=== PATIENT | male | born 1955 | race Caucasian/White ===

== ENCOUNTER 2020-12-27 11:49 | Outpatient (RCR) | payer MEDICARE, SELFPAY ==
[2020-12-27] MEDS: COVID-19 VACC, MRNA(PFIZER)/PF 30 MCG/0.3 ML SYRINGE IM (07:10)
[2021-01-17] MEDS: COVID-19 VACC, MRNA(PFIZER)/PF 30 MCG/0.3 ML SYRINGE IM (07:16)
== END 2021-03-28 23:59 ==
LOC: IMMUN 11:49
PROVIDERS: PCP Family Medicine; Visit Provider Family Medicine
DX: Z23 Encounter for immunization (principal)
CPT/HCPCS: 0001A; 0002A; 91300

== ENCOUNTER → 2021-10-06 07:19 | Outpatient (CLI) | payer MEDICARE, SELFPAY ==
--- NOTE | 2021-10-06 07:21 | US_ITS ---
STUDY: ABDOMINAL ULTRASOUND - RIGHT UPPER QUADRANT REASON FOR VISIT: Male, 66 years old FATTY LIVER TECHNIQUE: Ultrasound evaluation of the right upper quadrant was performed with real-time and static perkins-scale imaging. TECHNICAL QUALITY: Adequate. COMPARISON: None. FINDINGS: Liver: The liver is enlarged and measures 19.5 cm. There is increased echogenicity consistent with fatty infiltration. The bile ducts are within normal limits. There is hepatic color flow. The direction of portal flow is hepatopetal. Multiple cysts are seen in the liver. The largest cyst measures 4.4 cm x 6.8 cm x 5.2 cm. Gallbladder: Normal distended gallbladder. The gallbladder wall measures 2.8 mm. There is a negative sonographic Ellison''s sign. There is no pericholecystic fluid. There are no gallstones. Common Bile Duct (C.B.D.): The common bile duct measures 3.0 mm. Pancreas: Normal size of the head, body and tail of the pancreas. There is increased echogenicity of the pancreas. There is no demonstrated pancreatic mass or cyst. Right Kidney: Normal size of the right kidney. The right kidney measures 11.2 cm x 6.5 cm x 7.6 cm. Normal renal cortex. The right cortex measures 2.2 cm. There is no demonstrated renal mass or cyst. There is no right hydronephrosis. IMPRESSION: Hepatomegaly and diffuse fatty infiltration of the liver. Hepatic cysts. Electronically Signed: Sonny Boyd MD at 9:51 EST , Service support , STUDY: ABDOMINAL ULTRASOUND - ELASTOGRAPHY REASON FOR VISIT: Male, 66 years old. Hepatomegaly and fatty obstruction of the liver. TECHNIQUE: Liver stiffness measurements were obtained on a [employer] 85 ultrasound machine using a CA 1-7 probe following the SRU guidelines. 3 measurements were obtained using a 2-D-SWE method. The IQR/M was 15% suggesting a quality data set. TECHNICAL QUALITY: Adequate. COMPARISON: Comparison is made with prior examination done earlier today. FINDINGS: Liver: Hepatomegaly and diffuse fatty infiltration of the liver. Median liver stiffness measured 17 kPa. US/Elastography Parenchyma/Organ IMPRESSION: Liver stiffness measures 17 kPa compatible with F4 Metavir score. Electronically Signed: Sonny Boyd MD at 9:53 EST , Service support ,
--- NOTE | 2021-10-06 07:21 | US_ITS ---
STUDY: ABDOMINAL ULTRASOUND - RIGHT UPPER QUADRANT REASON FOR VISIT: Male, 66 years old FATTY LIVER TECHNIQUE: Ultrasound evaluation of the right upper quadrant was performed with real-time and static perkins-scale imaging. TECHNICAL QUALITY: Adequate. COMPARISON: None. FINDINGS: Liver: The liver is enlarged and measures 19.5 cm. There is increased echogenicity consistent with fatty infiltration. The bile ducts are within normal limits. There is hepatic color flow. The direction of portal flow is hepatopetal. Multiple cysts are seen in the liver. The largest cyst measures 4.4 cm x 6.8 cm x 5.2 cm. Gallbladder: Normal distended gallbladder. The gallbladder wall measures 2.8 mm. There is a negative sonographic Ellison''s sign. There is no pericholecystic fluid. There are no gallstones. Common Bile Duct (C.B.D.): The common bile duct measures 3.0 mm. Pancreas: Normal size of the head, body and tail of the pancreas. There is increased echogenicity of the pancreas. There is no demonstrated pancreatic mass or cyst. Right Kidney: Normal size of the right kidney. The right kidney measures 11.2 cm x 6.5 cm x 7.6 cm. Normal renal cortex. The right cortex measures 2.2 cm. There is no demonstrated renal mass or cyst. There is no right hydronephrosis. IMPRESSION: Hepatomegaly and diffuse fatty infiltration of the liver. Hepatic cysts. Electronically Signed: Sonny Boyd MD at 9:51 EST , Service support , STUDY: ABDOMINAL ULTRASOUND - ELASTOGRAPHY REASON FOR VISIT: Male, 66 years old. Hepatomegaly and fatty obstruction of the liver. TECHNIQUE: Liver stiffness measurements were obtained on a [employer] 85 ultrasound machine using a CA 1-7 probe following the SRU guidelines. 3 measurements were obtained using a 2-D-SWE method. The IQR/M was 15% suggesting a quality data set. TECHNICAL QUALITY: Adequate. COMPARISON: Comparison is made with prior examination done earlier today. FINDINGS: Liver: Hepatomegaly and diffuse fatty infiltration of the liver. Median liver stiffness measured 17 kPa. US/Abdomen Limited IMPRESSION: Liver stiffness measures 17 kPa compatible with F4 Metavir score. Electronically Signed: Sonny Boyd MD at 9:53 EST , Service support ,
== END ==
PROVIDERS: PCP Family Medicine; Referring Provider Nurse Practitioner Adult Health; Visit Provider Nurse Practitioner Adult Health
DX: K76.0 Fatty (change of) liver, not elsewhere classified (principal)
CPT/HCPCS: 76705; 76981

== ENCOUNTER → 2021-10-07 06:59 | Outpatient (CLI) | payer MEDICARE, SELFPAY ==
[2021-10-07 07:35] LABS: Absolute Lymphocyte Count 1.76 X10^3/uL (0.83-4.51); Absolute Neutrophil Count 3.3 X10^3/uL (2.0-7.7); Basophil# 0.06 X10^3/uL; Eosinophil# 0.23 X10^3/uL; Eosinophils% 3.7 % (0-5); Hematocrit 49.2 % (40-54); Hemoglobin 16.5 g/dL (13.0-16.5); Lymphocyte # 1.76 X10^3/ul (0.83-4.51); Lymphocyte % 28.3 % (19-41); Mean Corp Hgb Conc 33.5 g/dL (32-36); Mean Corpuscular Hgb 31.1 pg (27.0-32.0); Mean Corpuscular Volume 92.7 fL (80-94); Mean Platelet Vol. 10.2 fl (6.2-12.0); Monocyte# 0.85 X10^3/uL; Monocyte% 13.7 % (0-10); NRBC Flagged by Analyzer 0 % (0-5); Neutrophil # 3.28 X10^3/uL (2.7-7.7); Neutrophil % 52.8 % (47-70); Platelet Count 248 K/mm3 (150-450); RBC Distribution Width CV 12.3 % (11.6-14.6); RBC Distribution Width SD 42.5 fl (35.1-43.9); Red Blood Count 5.31 M/mm3 (4.6-6.2); White Blood Count 6.2 K/mm3 (4.4-11.0)
[2021-10-07 07:40] LABS: Erythrocyte Sedimentation Rate 16 mm/hr (0-20)
[2021-10-07 07:56] LABS: International Normalized Ratio 1.1; Prothrombin Time (Protime)PT. 13.2 SECONDS (11.7-14.9)
[2021-10-07 07:57] LABS: Partial Thromboplast Time 32.2 Seconds (24.1-36.2)
[2021-10-07 08:12] LABS: AST(SGOT) 84 U/L (15-37); Alanine Aminotransfer ALT/SGPT 168 U/L (16-61); Albumin, Serum 3.5 g/dL (3.2-5.0); Alkaline Phosphatase 65 U/L (45-117); Anion Gap 5 (5-15); BUN 20 mg/dL (7-18); BUN/Creat Ratio 22.8 RATIO (10-20); Bilirubin, Direct 0.26 mg/dL (0.00-0.30); CRP 3.68 mg/L (0.0-3.0); Calcium,Total 9.4 mg/dL (8.5-10.1); Chloride 110 mmol/L (98-107); Creatinine, Serum 0.88 mg/dL (0.70-1.30); EST Glomerular Filtration Rate 92 mL/min (>60); Est Glom Filt Rate - Afr Amer 111 mL/min (>60); Ferritin 468 ng/mL (26-388); Globulin 4.2 g/dL (2.2-4.2); Glucose 107 mg/dL (74-106); LDH 204 U/L (87-241); Potassium 4.1 mmol/L (3.5-5.1); Protein, Total 7.7 g/dL (6.4-8.2); Sodium Level 139 mmol/L (136-145)
[2021-10-07 10:56] LABS: Hemoglobin A1c 5.5 % (3.8-5.6)
[2021-10-09 09:13] LABS: HIV - WCH Non-Reactive (Nonreactive)
[2021-10-09 12:07] LABS: Anti-Centromere B Ab <0.2 AI (0.0-0.9); Anti-Chromatin <0.2 AI (0.0-0.9); Anti-Jo <0.2 AI (0.0-0.9); Anti-Scleroderma-70 AB <0.2 AI (0.0-0.9); RNP Ab 0.3 AI (0.0-0.9); SJOGREN'S Anti-SS-A test < 0.2 AI (0.0-0.9); SJOGREN'S Anti-SS-B test < 0.2 AI (0.0-0.9); Smith Ab <0.2 AI (0.0-0.9)
[2021-10-09 13:34] LABS: Anti-Mitochondrial AB <20.0 Units (0.0-20.0); Anti-dsDNA Ab <1 IU/mL (0-9)
[2021-10-10 08:10] LABS: Angiotensin Convert Enzyme 61 U/L (14-82); Cytoplasmic Ab (C-ANCA) <1:20 titer (Neg:<1:20); HEPATITIS B SURFACE AG Negative (Negative); Hepatitis A IgM Antibody Negative (Negative); Hepatitis B Core AB IgM Negative (Negative)
[2021-10-10 13:18] LABS: AFP, Tumor Marker 2.8 ng/mL (0.0-8.3); Anti-Smooth Muscle ABS 10 Units (0-19); Ceruloplasmin 24.5 mg/dL (16.0-31.0); Hep C Antibodies <0.1 s/co ratio (0.0-0.9); Perinuclear Ab (P-ANCA) <1:20 titer (Neg:<1:20)
[2021-10-12 13:14] LABS: Copper, Serum or Plasma 116 ug/dL (69-132)
== END ==
PROVIDERS: PCP Family Medicine; Visit Provider Nurse Practitioner Adult Health
DX: K76.0 Fatty (change of) liver, not elsewhere classified (principal)
CPT/HCPCS: 80048; 80074; 80076; 82105; 82164; 82390; 82525; 82728; 83036; 83516; 83615; 85025; 85610; 85652; 85730; 86140; 86225; 86235; 86256; 86703

== ENCOUNTER 2021-10-25 08:02 | Outpatient (CLI) | payer MEDICARE, SELFPAY ==
[2021-10-25] VITALS (10 sets, daily range): BP systolic 123–141; BP diastolic 78–103; PULSE 67–83; RESP 12–22; TEMP 36.6–36.9; O2SAT 68–98; BMI 39.2
--- NOTE | 2021-10-25 | LIVB_PTH ---
PATIENT: MARY CARVAJAL LOC: [place] U#:[id number] AGE/SX: 66/M ROOM: RE10/25/[address]: SLY Duke : 1955 BED: DIS: 10/25/2021 SPEC #: [id number] RECD: 10/25/21 09:34 STATUS: EDGAR CORRALES #: [id number] KIAH: 10/25/21 00:[address]: Silva Ken NP DEPT: SURGICAL PATHOLOGY RECD BY: Caryn Peace ENTERED: 10/25/21 13:10 SP TYPE: LIVER BX OT DR: Dr. Jose Rubin MD Tissues: Liver, NOS Procedures: PAS with Diastase (control) Trichrome (control) Special Stain Group II PAS Stain (control) Surgery Specimen Level V Retic (control) Iron Stain (control) HEADER OPERATION: CT-guided liver biopsy PRE-OP DIAGNOSIS: Fatty liver TISSUE SUBMITTED: Liver 18-gauge x3 MICROSCOPIC DIAGNOSIS Liver, CT-guided core biopsy: Liver parenchymal tissue with extensive macro- and microvesicular steatosis and focal changes suggestive of impending cirrhosis. See microscopic description and comment. SJ:kimberlyn 10/26/2021 COMMENT Clinical correlation and appropriate follow up are necessary. Case has been reviewed in consultation with Dr. Farias who concurs with the above diagnosis. IDC:DIANA MICROSCOPIC DESCRIPTION Slides are reviewed. The specimen shows liver parenchymal tissue with focal distortion of normal lobular architecture. Hepatocytes show extensive macro- and microvesicular steatosis. Lobular inflammation is not seen. The portal areas show mild chronic inflammation. Interface inflammation is not seen. Iron stain shows absent iron. PAS stain with and without diastase does not show any abnormal accumulation of protein. Reticulin and trichrome stain highlights the portal, periportal fibrosis and focal bridging fibrosis and focal distortion of normal lobular architecture suggestive of impending cirrhosis. GROSS DESCRIPTION Received is one container labeled with the patient's name and not further designated. The specimen consists of three irregular fragments of hood soft tissue measuring 0.5 to 1.8 cm in length and 0.1 in diameter. The specimen is totally submitted in one cassette. / JULIETTE:kimberlyn 10/25/21 TC:5 CPT: 33108, 50486 x5
[2021-10-25 08:27] LABS: Platelet Count 230 K/mm3 (150-450)
--- NOTE | 2021-10-25 08:28 | CT_ITS ---
PROCEDURE: CT DIRECTED CORE LIVER BIOPSY INDICATION: Male, 66 years old. F4 Metavir score on elastography PHYSICIAN: CONSENT: Written informed consent was obtained having explained the risks, benefits and alternatives in detail with the patient who accepted the risks and agreed to proceed. Laboratory review and clinical assessment was performed. CONSCIOUS SEDATION PROTOCOL: The Drugs used were: 3 mg Versed, IV., and 75 Fentanyl, IV. The sedation time was: 11 minutes. Conscious sedation was started at 9:11 AM and terminated at 9:22 AM The conscious sedation protocol was independently monitored. RADIATION DOSAGE (If Supplied By Facility): CTDIvol = ( 26 ) mGy, DLP = ( 1894.02 ) mGycm Individualized dose optimization techniques were used for this CT. TECHNIQUE: Using CT image guidance with image documentation, a suitable location in the left lobe of the liver was identified. Using an anterior approach, puncture of the liver was uneventful with an 18-gauge core needle system. 3, 18-gauge core samples were obtained, and submitted in formalin to the pathologist for further assessment. Followup CT scan revealed no distinct sequelae. CT/Biopsy/Inj or Needle Placement IMPRESSION: 1. CT directed core needle biopsy of the liver, using CT image guidance with image documentation as described. 2. Conscious Sedation protocol utilized with independent monitoring. Electronically Signed: Sonny Boyd MD at 9:47 EST , Service support ,
[2021-10-25 09:07] LABS: Partial Thromboplast Time 35.5 Seconds (24.1-36.2)
[2021-10-25] MEDS: 0.9% Saline Lock 10 ML Syringe IV (09:08)
[2021-10-25] MEDS: Midazolam 2 MG/2 ML Syringe IV ×2 (09:11→10:03)
[2021-10-25] MEDS: fentaNYL 100 MCG/2 ML Ampul IV ×2 (09:11→09:22)
[2021-10-25] MEDS: Lidocaine 2% (20 ml mdv) 20 ML Vial INFILT (10:00)
== END 2021-10-25 23:59 | disposition home or self-care (01) ==
PROVIDERS: Internal Medicine Gastroenterology; PCP Family Medicine; Referring Provider Nurse Practitioner Adult Health; Visit Provider Nurse Practitioner Adult Health
DX: K76.0 Fatty (change of) liver, not elsewhere classified (principal); J43.9 Emphysema, unspecified; E66.9 Obesity, unspecified; Z68.39 Body mass index [BMI] 39.0-39.9, adult
CPT/HCPCS: 47000; 36415; 77012; 85049; 85610; 85730; 88307; 88313; J7040; A4216

== ENCOUNTER → 2022-02-09 | Outpatient (CLI) | payer MEDICARE, SELFPAY ==
[2022-02-09 07:18] LABS: Absolute Neutrophil Count 2.3 X10^3/uL (2.0-7.7); Basophil# 0.05 X10^3/uL; Basophil% 1.1 % (0-1); Eosinophil# 0.15 X10^3/uL; Eosinophils% 3.2 % (0-5); Hematocrit 46.6 % (40-54); Hemoglobin 15.8 g/dL (13.0-16.5); Lymphocyte % 31.7 % (19-41); Mean Corp Hgb Conc 33.9 g/dL (32-36); Mean Corpuscular Hgb 31.2 pg (27.0-32.0); Mean Corpuscular Volume 92.1 fL (80-94); Mean Platelet Vol. 10.1 fl (6.2-12.0); Monocyte# 0.72 X10^3/uL; Monocyte% 15.2 % (0-10); NRBC Flagged by Analyzer 0 % (0-5); Neutrophil % 48.6 % (47-70); Platelet Count 223 K/mm3 (150-450); RBC Distribution Width CV 12.7 % (11.6-14.6); RBC Distribution Width SD 42.9 fl (35.1-43.9); Red Blood Count 5.06 M/mm3 (4.6-6.2); White Blood Count 4.7 K/mm3 (4.4-11.0)
[2022-02-09 07:50] LABS: Prothrombin Time (Protime)PT. 13.2 SECONDS (11.7-14.9)
[2022-02-09 07:52] LABS: ALB/GLOB Ratio 0.9 RATIO (0.9-2.4); AST(SGOT) 21 U/L (15-37); Alanine Aminotransfer ALT/SGPT 26 U/L (16-61); Albumin, Serum 3.6 g/dL (3.2-5.0); Alkaline Phosphatase 70 U/L (45-117); Anion Gap 4 (5-15); BUN 14 mg/dL (7-18); Calcium,Total 9.5 mg/dL (8.5-10.1); Chloride 107 mmol/L (98-107); Creatinine, Serum 0.94 mg/dL (0.70-1.30); EST Glomerular Filtration Rate 85 mL/min (>60); Est Glom Filt Rate - Afr Amer 103 mL/min (>60); Globulin 3.8 g/dL (2.2-4.2); Glucose 105 mg/dL (74-106); Protein, Total 7.4 g/dL (6.4-8.2); Sodium Level 139 mmol/L (136-145)
[2022-02-09 07:54] LABS: Cholesterol 146 mg/dL (200); High Density Lipoprotein 40 mg/dL; Triglycerides 118 mg/dL; Very Low Density Lipoprotein 24 mg/dL (5-40)
[2022-02-10 11:23] LABS: Haptoglobin 117 mg/dL (32-363)
== END | disposition home or self-care (01) ==
LOC: LAB 07:02
PROVIDERS: Nurse Practitioner Adult Health; PCP Family Medicine; Referring Provider Internal Medicine Gastroenterology; Visit Provider Internal Medicine Gastroenterology
DX: K75.81 Nonalcoholic steatohepatitis (NASH) (principal); K70.10 Alcoholic hepatitis without ascites
CPT/HCPCS: 36415; 80053; 80061; 83010; 85025; 85610

== ENCOUNTER → 2023-04-17 | Outpatient (CLI) | payer MEDICARE, SELFPAY ==
[2023-04-17 14:40] LABS: Absolute Lymphocyte Count 1.54 X10^3/uL (0.83-4.51); Absolute Neutrophil Count 2.7 X10^3/uL (2.0-7.7); Basophil# 0.04 X10^3/uL; Basophil% 0.8 % (0-1); Eosinophil# 0.13 X10^3/uL; Eosinophils% 2.5 % (0-5); Hematocrit 44.7 % (40-54); Lymphocyte # 1.54 X10^3/ul (0.83-4.51); Lymphocyte % 30.1 % (19-41); Mean Corp Hgb Conc 33.6 g/dL (32-36); Mean Corpuscular Hgb 30.2 pg (27.0-32.0); Mean Corpuscular Volume 90.1 fL (80-94); Mean Platelet Vol. 10.3 fl (6.2-12.0); Monocyte# 0.72 X10^3/uL; Monocyte% 14.1 % (0-10); NRBC Flagged by Analyzer 0 % (0-5); Neutrophil # 2.66 X10^3/uL (2.7-7.7); Neutrophil % 51.9 % (47-70); Platelet Count 246 K/mm3 (150-450); RBC Distribution Width SD 42.5 fl (35.1-43.9); Red Blood Count 4.96 M/mm3 (4.6-6.2); White Blood Count 5.1 K/mm3 (4.4-11.0)
[2023-04-17 14:42] LABS: Erythrocyte Sedimentation Rate 9 mm/hr (0-20)
[2023-04-17 15:23] LABS: AST(SGOT) 24 U/L (15-37); Alanine Aminotransfer ALT/SGPT 31 U/L (16-61); Albumin, Serum 3.8 g/dL (3.2-5.0); Alkaline Phosphatase 68 U/L (45-117); Anion Gap 5 (5-15); BUN 14 mg/dL (7-18); BUN/Creat Ratio 14.6 RATIO (10-20); CRP < 2.90 mg/L (0.0-3.0); Calcium,Total 9.6 mg/dL (8.5-10.1); Chloride 107 mmol/L (98-107); Creatinine, Serum 0.96 mg/dL (0.70-1.30); EST Glomerular Filtration Rate 83 mL/min (>60); Est Glom Filt Rate - Afr Amer 100 mL/min (>60); Ferritin 218 ng/mL (26-388); Glucose 89 mg/dL (74-106); LDH 189 U/L (87-241); Protein, Total 7.8 g/dL (6.4-8.2); Sodium Level 137 mmol/L (136-145)
== END | disposition home or self-care (01) ==
LOC: LAB 14:01
PROVIDERS: PCP Family Medicine; Referring Provider Internal Medicine Gastroenterology; Visit Provider Internal Medicine Gastroenterology
DX: K75.81 Nonalcoholic steatohepatitis (NASH) (principal)
CPT/HCPCS: 36415; 80053; 82728; 83615; 85025; 85610; 85652; 86140

== ENCOUNTER → 2023-09-17 | Outpatient (CLI) | payer MEDICARE, SELFPAY ==
[2023-09-17 08:17] LABS: Absolute Lymphocyte Count 1.61 X10^3/uL (0.83-4.51); Absolute Neutrophil Count 2.7 X10^3/uL (2.0-7.7); Basophil# 0.07 X10^3/uL; Basophil% 1.3 % (0-1); Eosinophil# 0.18 X10^3/uL; Eosinophils% 3.3 % (0-5); Hemoglobin 14.8 g/dL (13.0-16.5); Lymphocyte # 1.61 X10^3/ul (0.83-4.51); Lymphocyte % 29.3 % (19-41); Mean Corp Hgb Conc 32.9 g/dL (32-36); Mean Corpuscular Hgb 30.3 pg (27.0-32.0); Mean Corpuscular Volume 92.2 fL (80-94); Mean Platelet Vol. 9.6 fl (6.2-12.0); Monocyte# 0.87 X10^3/uL; Monocyte% 15.8 % (0-10); NRBC Flagged by Analyzer 0 % (0-5); Neutrophil # 2.74 X10^3/uL (2.7-7.7); Neutrophil % 49.8 % (47-70); Platelet Count 233 K/mm3 (150-450); RBC Distribution Width CV 12.8 % (11.6-14.6); RBC Distribution Width SD 43.6 fl (35.1-43.9); Red Blood Count 4.88 M/mm3 (4.6-6.2); White Blood Count 5.5 K/mm3 (4.4-11.0)
[2023-09-17 08:40] LABS: ALB/GLOB Ratio 0.9 RATIO (0.9-2.4); AST(SGOT) 23 U/L (15-37); Alanine Aminotransfer ALT/SGPT 39 U/L (16-61); Albumin, Serum 3.7 g/dL (3.2-5.0); Alkaline Phosphatase 64 U/L (45-117); Anion Gap 2 (5-15); BUN 16 mg/dL (7-18); BUN/Creat Ratio 15.8 RATIO (10-20); Calcium,Total 9.1 mg/dL (8.5-10.1); Chloride 107 mmol/L (98-107); Creatinine, Serum 1.01 mg/dL (0.70-1.30); EST Glomerular Filtration Rate 78 mL/min (>60); Est Glom Filt Rate - Afr Amer 94 mL/min (>60); Globulin 3.9 g/dL (2.2-4.2); Glucose 102 mg/dL (74-106); Protein, Total 7.6 g/dL (6.4-8.2); Sodium Level 138 mmol/L (136-145)
== END | disposition home or self-care (01) ==
LOC: LAB 08:00
PROVIDERS: PCP Family Medicine; Referring Provider Internal Medicine Gastroenterology; Visit Provider Internal Medicine Gastroenterology
DX: K75.81 Nonalcoholic steatohepatitis (NASH) (principal)
CPT/HCPCS: 36415; 80053; 85025

== ENCOUNTER → 2024-02-25 | Outpatient (CLI) | payer MEDICARE, SELFPAY ==
[2024-02-25 08:35] LABS: Absolute Lymphocyte Count 1.58 X10^3/uL (0.83-4.51); Absolute Neutrophil Count 3.6 X10^3/uL (2.0-7.7); Basophil# 0.06 X10^3/uL; Basophil% 0.9 % (0-1); Eosinophil# 0.21 X10^3/uL; Eosinophils% 3.2 % (0-5); Hematocrit 45.3 % (40-54); Hemoglobin 14.8 g/dL (13.0-16.5); Lymphocyte # 1.58 X10^3/ul (0.83-4.51); Lymphocyte % 24.2 % (19-41); Mean Corp Hgb Conc 32.7 g/dL (32-36); Mean Corpuscular Hgb 29.3 pg (27.0-32.0); Mean Corpuscular Volume 89.7 fL (80-94); Mean Platelet Vol. 10.6 fl (6.2-12.0); Monocyte# 1.04 X10^3/uL; NRBC Flagged by Analyzer 0 % (0-5); Neutrophil % 55.2 % (47-70); Platelet Count 253 K/mm3 (150-450); RBC Distribution Width CV 12.8 % (11.6-14.6); RBC Distribution Width SD 42.1 fl (35.1-43.9); Red Blood Count 5.05 M/mm3 (4.6-6.2); White Blood Count 6.5 K/mm3 (4.4-11.0)
[2024-02-25 12:11] LABS: AST(SGOT) 28 U/L (15-37); Alanine Aminotransfer ALT/SGPT 37 U/L (16-61); Albumin, Serum 3.8 g/dL (3.2-5.0); Alkaline Phosphatase 56 U/L (45-117); Anion Gap 5 (5-15); BUN 16 mg/dL (7-18); BUN/Creat Ratio 16.1 RATIO (10-20); Calcium,Total 9.1 mg/dL (8.5-10.1); Chloride 109 mmol/L (98-107); Creatinine, Serum 0.99 mg/dL (0.70-1.30); EST Glomerular Filtration Rate 79 mL/min (>60); Est Glom Filt Rate - Afr Amer 96 mL/min (>60); Glucose 93 mg/dL (74-106); Potassium 3.9 mmol/L (3.5-5.1); Protein, Total 7.8 g/dL (6.4-8.2); Sodium Level 139 mmol/L (136-145)
== END | disposition home or self-care (01) ==
PROVIDERS: PCP Family Medicine; Referring Provider Internal Medicine Gastroenterology; Visit Provider Internal Medicine Gastroenterology
DX: K75.81 Nonalcoholic steatohepatitis (NASH) (principal)
CPT/HCPCS: 36415; 80053; 85025

== ENCOUNTER → 2024-08-26 | Outpatient (CLI) | payer MEDICARE, SELFPAY ==
[2024-08-26 08:24] LABS: Erythrocyte Sedimentation Rate 5 mm/hr (0-20)
[2024-08-26 08:26] LABS: Absolute Neutrophil Count 2.2 X10^3/uL (2.0-7.7); Basophil# 0.04 X10^3/uL; Basophil% 0.9 % (0-1); Eosinophil# 0.14 X10^3/uL; Eosinophils% 3.2 % (0-5); Hematocrit 43.7 % (40-54); Hemoglobin 14.7 g/dL (13.0-16.5); Lymphocyte % 29.7 % (19-41); Mean Corp Hgb Conc 33.6 g/dL (32-36); Mean Corpuscular Hgb 30.3 pg (27.0-32.0); Mean Corpuscular Volume 90.1 fL (80-94); Mean Platelet Vol. 10.2 fl (6.2-12.0); Monocyte# 0.71 X10^3/uL; Monocyte% 16.2 % (0-10); NRBC Flagged by Analyzer 0 % (0-5); Neutrophil # 2.15 X10^3/uL (2.7-7.7); Neutrophil % 49.3 % (47-70); Platelet Count 222 K/mm3 (150-450); RBC Distribution Width CV 12.6 % (11.6-14.6); RBC Distribution Width SD 41.8 fl (35.1-43.9); Red Blood Count 4.85 M/mm3 (4.6-6.2); White Blood Count 4.4 K/mm3 (4.4-11.0)
[2024-08-26 08:34] LABS: International Normalized Ratio 1.1; Prothrombin Time (Protime)PT. 13.8 SECONDS (11.7-14.9)
[2024-08-26 08:47] LABS: ALB/GLOB Ratio 1.1 RATIO (0.9-2.4); AST(SGOT) 32 U/L (15-37); Alanine Aminotransfer ALT/SGPT 55 U/L (16-61); Albumin, Serum 3.7 g/dL (3.2-5.0); Alkaline Phosphatase 52 U/L (45-117); Anion Gap 6 (5-15); BUN 22 mg/dL (7-18); BUN/Creat Ratio 22.4 RATIO (10-20); CRP 3.92 mg/L (0.0-3.0); Calcium,Total 9.1 mg/dL (8.5-10.1); Chloride 109 mmol/L (98-107); Creatinine, Serum 0.98 mg/dL (0.70-1.30); EST Glomerular Filtration Rate 80 mL/min (>60); Est Glom Filt Rate - Afr Amer 97 mL/min (>60); Globulin 3.5 g/dL (2.2-4.2); Glucose 96 mg/dL (74-106); Potassium 3.8 mmol/L (3.5-5.1); Protein, Total 7.2 g/dL (6.4-8.2); Sodium Level 139 mmol/L (136-145)
== END | disposition home or self-care (01) ==
PROVIDERS: PCP Family Medicine; Referring Provider Internal Medicine Gastroenterology; Visit Provider Internal Medicine Gastroenterology
DX: K75.81 Nonalcoholic steatohepatitis (NASH) (principal)
CPT/HCPCS: 36415; 80053; 85025; 85610; 85652; 86140

== ENCOUNTER → 2025-01-04 | Outpatient (CLI) | payer MEDICARE, SELFPAY ==
[2025-01-04 12:39] LABS: Absolute Lymphocyte Count 1.55 X10^3/uL (0.83-4.51); Absolute Neutrophil Count 2.9 X10^3/uL (2.0-7.7); Basophil# 0.05 X10^3/uL; Basophil% 0.9 % (0-1); Eosinophils% 3.6 % (0-5); Hematocrit 44.3 % (40-54); Hemoglobin 14.9 g/dL (13.0-16.5); Lymphocyte # 1.55 X10^3/ul (0.83-4.51); Lymphocyte % 28.2 % (19-41); Mean Corp Hgb Conc 33.6 g/dL (32-36); Mean Corpuscular Hgb 30.3 pg (27.0-32.0); Mean Corpuscular Volume 90.2 fL (80-94); Monocyte# 0.82 X10^3/uL; Monocyte% 14.9 % (0-10); NRBC Flagged by Analyzer 0 % (0-5); Neutrophil # 2.85 X10^3/uL (2.7-7.7); Neutrophil % 51.9 % (47-70); Platelet Count 217 K/mm3 (150-450); RBC Distribution Width CV 12.8 % (11.6-14.6); RBC Distribution Width SD 42.1 fl (35.1-43.9); Red Blood Count 4.91 M/mm3 (4.6-6.2); White Blood Count 5.5 K/mm3 (4.4-11.0)
[2025-01-04 13:03] LABS: Erythrocyte Sedimentation Rate 5 mm/hr (0-20)
[2025-01-04 13:43] LABS: ALB/GLOB Ratio 1.3 RATIO (0.9-2.4); AST(SGOT) 44 U/L (<=37); Alanine Aminotransfer ALT/SGPT 55 U/L (<=46); Albumin, Serum 4.2 g/dL (3.4-4.8); Alkaline Phosphatase 59 U/L (40-129); Anion Gap 11 (5-15); BUN 15 mg/dL (4-19); BUN/Creat Ratio 17.7 RATIO (10-20); Calcium,Total 9.7 mg/dL (7.6-11.0); Carbon Dioxide 22.9 mmol/L (21.0-32.0); Chloride 105 mmol/L (98-108); Creatinine, Serum 0.87 mg/dL (0.70-1.20); EST Glomerular Filtration Rate 93 (>60); Globulin 3.2 g/dL (2.2-4.2); Glucose 99 mg/dL (70-99); Potassium 4.6 mmol/L (3.3-5.1); Protein, Total 7.4 g/dL (5.9-8.4); Sodium Level 139 mmol/L (133-145); Total Bilirubin 0.55 mg/dL (0.00-1.30)
[2025-01-04 16:15] LABS: Amylase 54 U/L (28-100); CRP < 3.00 mg/L (0.0-3.0); Lipase 27 U/L (13-75)
== END | disposition home or self-care (01) ==
LOC: LAB 12:02
PROVIDERS: PCP Family Medicine; Referring Provider Internal Medicine Gastroenterology; Visit Provider Internal Medicine Gastroenterology
DX: R10.9 Unspecified abdominal pain (principal); K59.01 Slow transit constipation; K75.81 Nonalcoholic steatohepatitis (NASH)
CPT/HCPCS: 36415; 80053; 82150; 83690; 85025; 85652; 86140

== ENCOUNTER → 2025-02-02 | Outpatient (CLI) | payer MEDICARE, SELFPAY ==
--- NOTE | 2025-02-02 07:53 | CT_ITS ---
PROCEDURE: ABDOMEN/PELVIS WITH CONTRAST 02/02/2025 REASON FOR EXAM: ABDOMINAL PAIN TECHNIQUE: Abdomen and pelvis CT with intravenous contrast. Coronal and Sagittal reconstruction series were provided. PATIENT PREPARATION: Per protocol ORAL CONTRAST TYPE: Readi-CAT. AMOUNT: Reportedly, 2 bottles. Volume not provided. CONTRAST: Isovue-300 VOLUME: 100 mL One or more dose reduction techniques were used (e.g., Automated exposure control, adjustment of the mA and/or kV according to patient size, use of iterative reconstruction technique. RADIATION DOSE SUMMARY: CTDlvol: 9.97+ 24.04 mGy DLP: 1396.81 mGycm COMPARISON: None. FINDINGS: Lung bases: Atelectasis/scarring. Eventrated RIGHT hemidiaphragm. Liver: Steatosis. Scattered hepatic cysts up to 6.5 cm and additional subcentimeter hypodensities too small to characterize likely to reflect additional cysts or hemangiomas in the absence of known malignancy.. Spleen: Unremarkable. Gallbladder: Unremarkable. Pancreas: Unremarkable. Adrenals: Unremarkable. Kidneys: Tiny hypodensity at the LEFT upper pole too small to characterize likely a cyst.. Bowel: Small periampullary duodenal diverticulum. Minimal diverticulosis.. Normal caliber appendix. Lymph nodes: Unremarkable. Vasculature: Mild atherosclerosis.. Peritoneum: Unremarkable. Bladder: Underdistended and suboptimally evaluated, grossly unremarkable. Reproductive Organs: Mild prostatomegaly.. Body Wall: Tiny fat containing umbilical hernia.. Bones: Demineralization. Multilevel spondylosis. Chronic appearing compression deformity of T12. Chronic appearing central superior endplate compressive deformity at T11. Mild lumbar levoscoliosis. Presumed degenerative sclerosis along the NSBF-zmotycv-xjhe-RIGHT SI joints. Degenerative changes of the pubic symphysis.. CT/Abdomen/Pelvis WITH Contrast IMPRESSION: 1. No acute findings. 2. Hepatic steatosis. Correlate with clinical and laboratory evidence of chron ic liver disease. 3. Additional description as above. Reading Location: [id number]
== END | disposition home or self-care (01) ==
LOC: CT 07:53
PROVIDERS: PCP Family Medicine; Referring Provider Internal Medicine Gastroenterology; Visit Provider Internal Medicine Gastroenterology
DX: R10.9 Unspecified abdominal pain (principal); K59.01 Slow transit constipation; K75.81 Nonalcoholic steatohepatitis (NASH)
CPT/HCPCS: 74177; Q9967

== ENCOUNTER → 2025-03-23 | Outpatient (CLI) | payer MEDICARE, SELFPAY ==
--- NOTE | 2025-03-23 12:00 | RAD_ITS ---
PROCEDURE: ORBITS FOR FOREIGN BODY 03/23/2025 REASON FOR EXAM: HX: METAL TO EYES TECHNIQUE: Two (2) view(s) of the facial bones COMPARISON: No relevant prior. FINDINGS: Bones: Unremarkable. Sinuses: Unremarkable. Additional findings: No metallic foreign bodies. RAD/Orbits for Foreign Body IMPRESSION: 1. No radiopaque foreign bodies or other abnormalities. Reading Location: [place] [id number]
== END | disposition home or self-care (01) ==
LOC: MRI 11:59
PROVIDERS: PCP Family Medicine; Referring Provider Internal Medicine Gastroenterology; Visit Provider Internal Medicine Gastroenterology
DX: Z01.818 Encounter for other preprocedural examination (principal)
CPT/HCPCS: 70030

== ENCOUNTER → 2025-04-26 | Outpatient (CLI) | payer MEDICARE, SELFPAY | END | disposition home or self-care (01) | LOC: CT 06:03 | PROVIDERS: PCP Family Medicine; Referring Provider Internal Medicine Gastroenterology; Visit Provider Internal Medicine Gastroenterology | DX: R79.89 Other specified abnormal findings of blood chemistry (principal); K75.81 Nonalcoholic steatohepatitis (NASH) | CPT/HCPCS: 74170; Q9967 ==

== ENCOUNTER 2025-07-07 08:18 | Day surgery (SDC) | payer MEDICARE, SELFPAY ==
--- NOTE | 2025-07-02 09:11 | PAT.ANE_ITS ---
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 When Was Last Pacemaker Check QUESTION #4 FULL TEXT: You/Your Family Experience fever (hyperthermia) with Anesthesia Last Oral Intake Last Oral intake: Last Oral Intake NPO since Meds taken in AM with sips of water? Meds patient instructed to take am of surgery PONV PONV - powerhouse mechanic helper: PONV - powerhouse mechanic helper Female No 07/01/25 15:51 HX of Motion Sickness No 07/01/25 15:51 HX of N/V After Surgery No 07/01/25 15:51 Non-Smoker Yes 07/01/25 15:51 Duration of Surgery greater No 07/01/25 15:51 than 60 minutes Number of Risk Factors 1 07/01/25 15:51 PONV Score Low Risk 07/01/25 15:51 Height & Weight Height & Weight: Anesthesia: Height & Weight Height 6 ft 02/26/25 07:51 Respiratory Assessment Respiratory Assessment - powerhouse mechanic helper: Respiratory Tract Infection Hx - powerhouse mechanic helper Hx Respiratory Tract Infection No 07/01/25 15:51 STOP Sleep Apnea STOP Sleep Apnea - powerhouse mechanic helper: STOP Sleep Apnea - powerhouse mechanic helper Hx Hypertension No 07/01/25 15:51 Hx Sleep Apnea Yes 07/01/25 15:51 CPAP Yes 07/01/25 15:51 BIPAP No 07/01/25 15:51 Do you snore loudly (louder than talking or can be heard Do you often feel tired/ fatigued/ sleepy during daytime? Has anyone observed you stop breathing during sleep? STOP Results Positive 07/01/25 15:51 QUESTION #5 FULL TEXT : Do you snore loudly (louder than talking or can be heard through closed doors)? 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 Specify any problems Hx of Preganancy in last 3 N/A 07/01/25 15:51 Months Nurse Filling Out Transfusion MGRIFFITH 07/01/25 15:51 & Questions: Date: 07/01/25 07/01/25 15:51 Time: 15:54 07/01/25 15:51 Patient unable to answer at this time (ie. confused, unrespo /Reproduction History /Reproductive History - powerhouse mechanic helper: /Reproductive Hx- powerhouse mechanic helper Hx Now No 07/01/25 15:51 Gestational Age (in weeks): EDC: Hx Hx Para Hx Section SAB No 07/01/25 15:51 PFSH Medical History (Updated 07/01/25 @ 16:05 by Mikayla Bueno) Arthritis Injury of back Injury of head and neck Gastric reflux Sleep apnea COPD (chronic obstructive pulmonary disease) Shortness of breath on exertion Former smoker Chronic cough History of echocardiogram History of stress test Steatohepatitis Empyema lung Home Medications ?Medication ?Instructions ?Recorded ?Last Taken ?Type glucosamine sulfate 500 mg tablet 1,500 mg PO DAILY 10/24/21 08:00 History (Glucosamine) multivitamin 1 tab PO DAILY 09/27/2103/11 08:00 History ginkgo biloba 40 mg tablet 40 mg PO DAILY 07/01/25 Unk nown History Allergy/AdvReac Type Severity Reaction Status Date / Time vancomycin Allergy Severe Red Man Verified 07/01/25 15:48 syndrome amoxicillin Allergy Intermediate Other Verified 07/01/25 15:48 Surgical History (Updated 07/01/25 @ 15:50 by Mikayla Bueno) History of colonoscopy History of lung surgery Social History Smoking Status: Former smoker Recommendation Anesthesia Recommendation Anesthesia recommendation: OPTIMIZED for anesthesia
[2025-07-07] VITALS (8 sets, daily range): BP systolic 95–134; BP diastolic 67–79; PULSE 70–78; RESP 16–18; TEMP 36.2–36.4; O2SAT 90–94; BMI 36.4
[2025-07-07] MEDS: Lactated Ringers 1,000 ML 15 ML IV (08:44)
--- NOTE | 2025-07-07 08:57 | PCM.PRE.AN2 ---
ASA Classification* ASA Classification ASA Classification: 2 Assessment & Plan Anesthesia* Anesthesia Assessment Anesthesia Assessment: Discussed sedation and/or anesthesia options, risks, benefits, and alternatives with patient/parents/legal guardian/POA. Questions invited. The patient/parents/legal guardian/POA seems to understand and agrees to proceed with anesthesia plan. Reviewed the physical assessment, medical history, allergy history and patient home medications list prior to surgery/procedure/anesthetic and documented any changes. Performed airway and anesthesia risk assessments. Anesthesia Type Anesthesia Type: MAC (The patient stated that his son has been told that he has malignant hyperthermia) History Source History Obtained from:: Patient and Chart Anesthesia Focused Assessment* Temperature: 97.4 F Pulse Rate: 78 Blood Pressure: 134/79 Respiratory Rate: 18 Pulse Ox: 94 Oxygen Delivery Method: Room Air Airway Assessment Mouth opens: >3 cm Mallampati Score: II Teeth Condition: Caps/Crowns Neck Range of motion (ROM): Full ROM Labs Anesthesia Preop lab: CBC WBC, (4.4-11.0) 5.5 K/mm3 01/04/25, 12:13 RBC, (4.6-6.2) 4.91 M/mm3 01/04/25, 12:13 Hgb, (13.0-16.5) 14.9 g/dL 01/04/25, 12:13 Hct, (40-54) 44.3 % 01/04/25, 12:13 Plt Count, (150-450) 217 K/mm3 01/04/25, 12:13 CHEMISTRY Potassium, (3.3-5.1) 4.6 mmol/L 01/04/25, 12:13 Sodium, (133-145) 139 mmol/L 01/04/25, 12:13 BUN, (4-19) 15 mg/dL 01/04/25, 12:13 Creatinine, (0.70-1.20) 0.87 mg/dL 01/04/25, 12:13 Glucose, (70-99) 99 mg/dL 01/04/25, 12:13 COAG PT, (11.7-14.9) 13.8 SECONDS 08/26/24, 07:49 Pre-Assessment Diagnosis/Proposed Procedure Planned Operative Procedure(s): COLONOSCOPY Anesthesia History Anesthesia History - client relation specialist: Anesthesia History - client relation specialist Hx Hospitalization No 07/01/25 15:51 Any Problems With Anesthesia No 07/01/25 15:51 Cholinesterase deficiency No 07/01/25 15:51 You/Your Family Experience Yes: SON 07/01/25 15:51 fever (hyperthermia) with Relationship Recent Exposure to Contagious No 07/07/25 08:38 Disease Does patient have nerve No 07/01/25 15:51 stimulator Patient instructed to have device shut off --Does patient have Pacemaker No 07/07/25 08:38 or ICD? When Was Last Pacemaker Check QUESTION #4 FULL TEXT: You/Your Family Experience fever (hyperthermia) with Anesthesia Last Oral Intake Last Oral intake: Last Oral Intake NPO since 05:30 07/07/25 08:38 Meds taken in AM with sips of No 07/07/25 08:38 water? Meds patient instructed to take am of surgery PONV PONV - client relation specialist: PONV - client relation specialist Female No 07/01/25 15:51 HX of Motion Sickness No 07/01/25 15:51 HX of N/V After Surgery No 07/01/25 15:51 Non-Smoker Yes 07/01/25 15:51 Duration of Surgery greater No 07/01/25 15:51 than 60 minutes Number of Risk Factors 1 07/01/25 15:51 PONV Score Low Risk 07/01/25 15:51 Height & Weight Height & Weight: Anesthesia: Height & Weight Height 6 ft 07/07/25 08:38 Weight: 122 kg 07/07/25 08:38 Body Mass Index (BMI) 36.4 07/07/25 08:38 Respiratory Assessment Respiratory Assessment - client relation specialist: Respiratory Tract Infection Hx - client relation specialist Hx Respiratory Tract Infection No 07/01/25 15:51 STOP Sleep Apnea STOP Sleep Apnea - client relation specialist: STOP Sleep Apnea - client relation specialist Hx Hypertension No 07/01/25 15:51 Hx Sleep Apnea Yes 07/01/25 15:51 CPAP Yes 07/01/25 15:51 BIPAP No 07/01/25 15:51 Do you snore loudly (louder than talking or can be heard Do you often feel tired/ fatigued/ sleepy during daytime? Has anyone observed you stop breathing during sleep? STOP Results Positive 07/01/25 15:51 QUESTION #5 FULL TEXT : Do you snore loudly (louder than talking or can be heard through closed doors)? 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 Specify any problems Hx of Preganancy in last 3 N/A 07/01/25 15:51 Months Nurse Filling Out Transfusion MGRIFFITH 07/01/25 15:51 & Questions: Date: 07/01/25 07/01/25 15:51 Time: 15:54 07/01/25 15:51 Patient unable to answer at this time (ie. confused, unrespo /Reproduction History /Reproductive History - client relation specialist: /Reproductive Hx- client relation specialist Hx Now No 07/01/25 15:51 Gestational Age (in weeks): EDC: Hx Hx Para Hx Section SAB No 07/01/25 15:51 Active Medications Active Medications: Current Medications Generic Name Dose Route Start Last Admin Trade Name Freq PRN Reason Stop Dose Admin Lactated Ringer's 1,000 mls @ 15 mls/hr 07/07/25 08:30 07/07/25 08:44 IV 15 mls/hr .Q48H HARI Administration PFSH Medical History Arthritis Injury of back Injury of head and neck Gastric reflux Sleep apnea COPD (chronic obstructive pulmonary disease) Shortness of breath on exertion Former smoker Chronic cough History of echocardiogram History of stress test Steatohepatitis Empyema lung Home Medications ?Medication ?Instructions ?Recorded ?Last Taken ?Type glucosamine sulfate 500 mg tablet 1,500 mg PO DAILY 09/27/21 07/06/25 History (Glucosamine) multivitamin 1 tab PO DAILY 09/27/21 07/06/25 History ginkgo biloba 40 mg tablet 40 mg PO DAILY 07/01/25 07/06/25 History lutein 6 mg capsule 6 mg PO DAILY 07/07/25 07/06/25 History Allergy/AdvReac Type Severity Reaction Status Date / Time vancomycin Allergy Severe Red Man Verified 07/07/25 08:36 syndrome amoxicillin Allergy Intermediate Other Verified 07/07/25 08:36 Surgical History History of colonoscopy History of lung surgery Social History Smoking Status: Former smoker Review of Systems (Anesthesia) ROS Narrative System reviewed and no additional complaints, except as documented.
--- NOTE | 2025-07-07 08:59 | PCM.HP.STD ---
HPI - General General Date of Admission: 07/07/25 Date of Service: 07/07/25 Chief Complaint: abdominal pain HPI Narrative JEFFREY CARVAJAL, is a 69 M who presentsJEFFREY CARVAJAL, is a 69 M who presents to the office today for follow up. *[facility] established 09.27.21 when he was referred by his PCP for fatty liver evaluation. He has a distant history of excess alcohol use on weekends. No blood transfusion, tattoos or risky behavior exposing him to hepatitis C. ? US liver and elastography 10.06.21 hepatic measurement of 19.5cm and a stiffness of 17kPa, F4. ? Biochemical 10.07.21 CBC, ESR, coagulation, CMP (T.Bili H1.30), A1c, LDH, ceruloplasmin, JASON, AFP, copper, ANCA, LUISA comp, AMA, ASM, hepatitis, HIV without ? pertinent abnormality. Ferritin H468, CRP H3.68, AST H84-ALT H168-AP 65 Liver biopsy 1.. extensive macro and micro-vesicular steatosis and focal changes suggestive of impending cirrhosis. Following biopsy Jeffrey was started on ursodiol 250mg BID, vitamin e 800units QD, Zinc, vitamin C and atorvastatin 10mg QHS. OV 1.14.22 Doing well. Continue current medications and weight loss. OV 2.25.22 Continue medications and weight loss. Biochemical 4..22 CBC, haptoglobin, coagulation, CMP (T.Bili H1.20), LFT, cholesterol OV 4.29.22 doing well. Continue medications and weight loss. OV 7.22.22 Repeat imaging US RUQ and elastography 8.2.22 mild diffuse increased echogenicity without masses, with multiple liver cysts not requiring f/u; median velocity 1.48m/s equating to 5.48-8.29 F1. OV 11.4.22 doing well overall. Continue Vitamin E and actos. OV 3.10.23 Several months ago Jeffrey was involved in an accident while loading his lawn-mower onto a trailer and sustained injuries to his head, hand and compression fracture to his T12 vertebra. He was started on Percocet for pain management and experienced constipation which continues to be an issue. OV 6. doing well though has gained 8lbs; goal weight 255lbs. Continue Vit E and actos. ? Biochemical CBC, ESR, coag, CMP, LFT, LDH, CRP without pertinent abnormality.? FIB4 1.19 ? t.bili H1.1 ? Biochemical CBC, CMP? FIB4 1.09 OV 12 doing well. BM have normalized. OV 5 pt reports that he is doing well. Reports he is having a BM once a day. Pt reports acid reflux after he eats something spicy, then he drinks apple cider vinegar and that is helpful. OV 09.04.24 pt reports that he is feeling well overall, denies GI symptoms of concern at this time. Pt reports that he occasionally has constipation and that he will have HB if he eats spicy food; apple cider vinegar is still effective. OV 3.17. pt reports that for the past month he has been having right-sided abdominal pain; states that sometimes eating makes it worse and having a bm does not help. Pt reports occasional diarrhea and constipation. OV 5.9.25- Pt well since last visit. States he has not been having as much abdominal pain. BM are normal. Weights: 09.27.21 297lbs 10.25.21 289lbs 02.16.22 258lbs 05.11.22 257lbs 08.24.22 266lbs 09.20.23 271lbs 5.10. 270.8lbs 3. 287.0lbs 5.9. 281 lbs [facility] Medical History Arthritis Injury of back Injury of head and neck Gastric reflux Sleep apnea COPD (chronic obstructive pulmonary disease) Shortness of breath on exertion Former smoker Chronic cough History of echocardiogram History of stress test Steatohepatitis Empyema lung Home Medications ?Medication ?Instructions ?Recorded ?Last Taken ?Type glucosamine sulfate 500 mg tablet 1,500 mg PO DAILY 09/27/21 07/06/25 History (Glucosamine) multivitamin 1 tab PO DAILY 09/27/21 07/06/25 History ginkgo biloba 40 mg tablet 40 mg PO DAILY 07/01/25 07/06/25 History lutein 6 mg capsule 6 mg PO DAILY 07/07/25 07/06/25 History Allergy/AdvReac Type Severity Reaction Status Date / Time vancomycin Allergy Severe Red Man Verified 07/07/25 08:36 syndrome amoxicillin Allergy Intermediate Other Verified 07/07/25 08:36 Surgical History History of colonoscopy History of lung surgery Social History Smoking Status: Former smoker ROS Constitutional Constitutional: Denies fatigue, fever(s), poor appetite, weight gain or weight loss Gastrointestinal Gastrointestinal: Denies belching, bloating, change in bowel habits, change in stool character, chewing difficulty, coffee ground emesis, constipation, cramping, diarrhea, dyspepsia, dysphagia, early satiety, excessive flatus, fecal incontinence, heartburn, hematemesis, hematochezia, hemorrhoids, loose stools, melena, nausea, odynophagia, rectal bleeding, tenesmus, vomiting or weight changes Vital Signs Vital Signs Vital Signs: 07/07/25 08:38 07/07/25 08:38 07/07/25 08:59 Temperature 97.4 F L 97.4 F L Temperature Source Temporal Pulse Rate 78 78 Respiratory Rate 18 18 Respiratory Pattern Normal Blood Pressure 134/79 H 134/79 H Blood Pressure Mean 97 Blood Pressure Source Monitor Blood Pressure Position Semi-Fowlers Blood Pressure Location Left Arm Pulse Ox 94 94 Oxygen Delivery Method Room Air Room Air Weight Weight: 268 lb 15.423 oz Body Mass Index (BMI) 36.4 Physical Exam Const alert, oriented x3, no apparent distress and healthy appearing General Appearance: cooperative GI normal to inspection, nondistended, normoactive bowel sounds, soft to palpation, non-tender and non-distended Percussion: normal to percussion Rectal Exam: deferred Assessment & Plan Assessment/Plan (1) Abdominal pain: PLAN: Assessment and Plan Assessment and Plan (1) Abdominal pain: Status: Acute Plan: I think he has possible costochondritis. We will get a CT scan abdomen pelvis because of his history of Blanco. He has had some increase of his weight. His weight is up to 287 from 257. (2) Constipation: Status: Chronic Qualifiers: Constipation type: slow transit constipation Qualified Code(s): K59.01 - Slow transit constipation (3) Steatohepatitis: Status: Chronic Plan: He is still doing a lot better although he has gained about 8 pounds. His fibrosis score had gone down from F4 to F1 with the loss of 50 pounds. I like his goal weight to be around 255 at his heaviest. Currently at this time he is at 266. Over the next several months we will continue to recommend vitamin E without the use of Actos and diet recommendations for his fatty liver disease. 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 I think as long as we continue to abstain from alcohol and maintain a goal weight to keep his BMI at about 30 then he has the best chance of not progressing to further liver disease in the future or sustain any other problems associated with chronic inflammation in the liver including heart disease or essential nervous system disease. His fib 4 score continues to be very low. His last fib 4 score was 0.67. He needs up-to-date FibroScan. He may be a candidate for Rezdiffra in the future. His weight today is 270.8. That still puts him at a BMI of 34. I would like to see him down to 250. CT scan of the abdomen pelvis Liver: Steatosis. Scattered hepatic cysts up to 6.5 cm and additional subcentimeter hypodensities too small to characterize likely to reflect additional cysts or hemangiomas in the absence of known malignancy.. Spleen: Unremarkable. Gallbladder: Unremarkable. Pancreas: Unremarkable. Adrenals: Unremarkable. Kidneys: Tiny hypodensity at the LEFT upper pole too small to characterize likely a cyst.. Bowel: Small periampullary duodenal diverticulum. Minimal diverticulosis.. Normal caliber appendix. Lymph nodes: Unremarkable. Vasculature: Mild atherosclerosis.. Peritoneum: Unremarkable. Bladder: Underdistended and suboptimally evaluated, grossly unremarkable. Reproductive Organs: Mild prostatomegaly.. Body Wall: Tiny fat containing umbilical hernia.. Bones: Demineralization. Multilevel spondylosis. Chronic appearing compression deformity of T12. Chronic appearing central superior endplate compressive deformity at T11. Mild lumbar levoscoliosis. Presumed degenerative sclerosis along the EFNE-ghoywky-xrvr-RIGHT SI joints. Degenerative changes of the pubic symphysis.. CT/Abdomen/Pelvis WITH Contrast IMPRESSION: 1. No acute findings. 2. Hepatic steatosis. We will repeat his ultrasound and elastography this year. Patient has multiple hepatic cysts in the setting of severe steatosis. He may need repeat liver biopsy. We are awaiting his ultrasound with elastography and FibroScan to see if it progressed from previously. So recommend an ursodiol, vitamin EE M weight loss at this time.
--- NOTE | 2025-07-07 09:30 | COLBX_PTH ---
PATIENT: MARY CARVAJAL LOC: EN U#:[id number] AGE/SX: 69/M ROOM: RE07/07/[address]: Dr. Anil March DO : 1955 BED: DIS: 07/07/2025 SPEC #: [id number] RECD: 07/07/25 11:14 STATUS: EDGAR REJaylyn #: [id number] KIAH: 07/07/25 09:[address]: Anil March DEPT: SURGICAL PATHOLOGY RECD BY: Carlos Craig ENTERED: 07/07/25 11:34 SP TYPE: COLON BX NEW DR: Dr. Jose Rubin MD Tissues: A - Transverse colon B - Cecum, NOS C - Ascending colon D - Sigmoid colon biopsy Procedures: Surgery Specimen Level IV HEADER OPERATION: Colonoscopy with biopsy and polypectomy and clip PRE-OP DIAGNOSIS: Abdominal pain, constipation, steatohepatitis TISSUE SUBMITTED: A- Transverse colon polyp biopsy, B- Cecal polyp biopsy, C- Ascending colon polyp, D- Sigmoid colon biopsy MICROSCOPIC DIAGNOSIS A. Transverse colon, polyp, biopsy: - Tubular adenoma. B. Cecum, polyp, biopsy: - Tubular adenoma. C. Ascending colon, polyp, biopsy: - Tubular adenoma. D. Sigmoid colon, polyp, biopsy: - Tubular adenoma. MICROSCOPIC DESCRIPTION Slides are reviewed. GROSS DESCRIPTION A. Received in fixative is one container labeled with the patient's name and designated Transverse colon polyp biopsy. The specimen consists of three irregular fragments of light hood soft tissue that measure 0.3 to 0.5 cm. The specimen is totally submitted in one cassette. B. Received in fixative is one container labeled with the patient's name and designated Cecal polyp biopsy. The specimen consists of two irregular fragments of light hood soft tissue, each measuring 0.4 cm. The specimen is totally submitted in one cassette. C. Received in fixative is one container labeled with the patient's name and designated Ascending colon polyp. The specimen consists of a 0.9 x 0.4 x 0.1 cm aggregate of hood tissue fragments and a 0.8 x 0.7 x 0.5 cm granular polypoid tissue fragment; the resection margin is inked black and the polypoid tissue fragment is bisected. Entirely submitted in 1 cassette. D. Received in fixative is one container labeled with the patient's name and designated Sigmoid colon biopsy. The specimen consists of one irregular fragment of light hood soft tissue that measures 0.5 cm. The specimen is totally submitted in one cassette. TX 07/07/2025 CPT:13021m8
--- NOTE | 2025-07-07 10:04 | OP.COLON_ITS ---
Patient Name: Jeffrey Suárez Procedure Date: 07/07/2025 9:14 AM Date of : 1955 Age: 69 Procedure: Colonoscopy Indications: Screening for colorectal malignant neoplasm Providers: Anil March DO Referring MD: Jose Rubin Md Medicines: Monitored Anesthesia Care Patient Profile: This is a 69 year old male. Refer to note in patient chart for documentation of history and physical. Last Colonoscopy: 10 years ago. Complications: No immediate complications. Procedure: Pre-Anesthesia Assessment: - Prior to the procedure, a History and Physical was performed, and patient medications and allergies were reviewed. The patient is competent. The risks and benefits of the procedure and the sedation options and risks were discussed with the patient. All questions were answered and informed consent was obtained. Patient identification and proposed procedure were verified by the physician in the pre-procedure area. Mental Status Examination: alert and oriented. Airway Examination: normal oropharyngeal airway and neck mobility. Respiratory Examination: clear to auscultation. CV Examination: normal. Prophylactic Antibiotics: The patient does not require prophylactic antibiotics. Prior Anticoagulants: The patient has taken no anticoagulant or antiplatelet agents. ASA Grade Assessment: II - A patient with mild systemic disease. After reviewing the risks and benefits, the patient was deemed in satisfactory condition to undergo the procedure. The anesthesia plan was to use monitored anesthesia care (MAC). Immediately prior to administration of medications, the patient was re-assessed for adequacy to receive sedatives. The heart rate, respiratory rate, oxygen saturations, blood pressure, adequacy of pulmonary ventilation, and response to care were monitored throughout the procedure. The physical status of the patient was re-assessed after the procedure. After I obtained informed consent, the scope was passed under direct vision. Throughout the procedure, the patient's blood pressure, pulse, and oxygen saturations were monitored continuously. The Colonoscope was introduced through the anus and advanced to the cecum, identified by appendiceal orifice and ileocecal valve. The colonoscopy was performed without difficulty. The patient tolerated the procedure well. The quality of the bowel preparation was adequate. The ileocecal valve, appendiceal orifice, and rectum were photographed. Scope In: 9:22:56 AM Scope Withdrawal Time 0 hours 21 minutes 42 seconds Scope Out: 9:51:39 AM Total Procedure Duration Time 0 hours 28 minutes 43 seconds Findings: The perianal and digital rectal examinations were normal. A few small-mouthed diverticula were found in the recto-sigmoid colon and sigmoid colon. A 10 mm polyp was found in the ascending colon. The polyp was sessile. The polyp was removed with a hot snare. Resection and retrieval were complete. Verification of patient identification for the specimen was done. To prevent bleeding after the polypectomy, one hemostatic clip was successfully placed. Clip addiction specialist: [employer]. There was no bleeding at the end of the procedure. Three sessile polyps were found in the transverse colon and cecum. The polyps were 5 mm in size. These polyps were removed with a cold biopsy forceps. Resection and retrieval were complete. Verification of patient identification for the specimen was done. Estimated blood loss was minimal. Internal hemorrhoids were found during retroflexion. The hemorrhoids were mild. Impression: - Diverticulosis in the recto-sigmoid colon and in the sigmoid colon. - One 10 mm polyp in the ascending colon, removed with a hot snare. Resected and retrieved. Clip was placed. Clip addiction specialist: [employer]. - Three 5 mm polyps in the transverse colon and in the cecum, removed with a cold biopsy forceps. Resected and retrieved. - Internal hemorrhoids. Recommendation: - Repeat colonoscopy in 5 years for surveillance. - Continue present medications. Procedure Code(s): --- Professional --- 06249, Colonoscopy, flexible; with removal of tumor(s), polyp(s), or other lesion(s) by snare technique 94998, 59, Colonoscopy, flexible; with biopsy, single or multiple CPT copyright 2021 [employer]. All rights reserved. The codes documented in this report are preliminary and upon animal behaviourist review may be revised to meet current compliance requirements. Anil March DO 07/07/2025 10:03:57 AM This report has been signed electronically. Number of Addenda: 0 Note Initiated On: 07/07/2025 9:14 AM
--- NOTE | 2025-07-07 10:04 | OP.PROVAT_ITS ---
07/07/2025 Jose Rubin Md Re : Colonoscopy procedure for Jeffrey Suárez Dear Scottie This procedure was performed on Monday, July 07, 2025. My impressions and recommendations are as follows: Impressions : - Diverticulosis in the recto-sigmoid colon and in the sigmoid colon. - One 10 mm polyp in the ascending colon, removed with a hot snare. Resected and retrieved. Clip was placed. Clip dough maker: [employer]. - Three 5 mm polyps in the transverse colon and in the cecum, removed with a cold biopsy forceps. Resected and retrieved. - Internal hemorrhoids. Recommendations : - Repeat colonoscopy in 5 years for surveillance. - Continue present medications. My findings are described in the full procedure note, which is enclosed. If I can be of further assistance, please feel free to contact me at . Sincerely, Anil March, 07/07/2025 10:03:57 AM This report has been signed electronically.
--- NOTE | 2025-07-07 10:04 | PCM.POST.ANE ---
Anesthesia: Postop Eval I Current Vital Signs Temperature: 97.6 F Pulse Rate: 70 Blood Pressure: 95/67 Respiratory Rate: 16 Pulse Ox: 90 Oxygen Delivery Method: Room Air Assessment Airway patent: Yes Spontaneous unlabored respirations: Yes Mental status: Asleep nausea: No Vomiting: No Anesthesia Complication: No Fluid Hydration Crystalloid volume administer (ml): 500 Total IV fluid infused: 500 Progress Note Anesthesia document: Postop Eval 1 completed: Yes
--- NOTE | 2025-07-07 12:35 | PCM.POSTANE2 ---
Anesthesia Postop Eval I Sum Postop Eval Completion status Anesthesia document: Postop Eval 1 completed: Yes Anesthesia Postop Eval I Summary Anesthesia Postop Eval I Summary: Anesthesia Postop Eval I: Assessment Summary Airway patent Yes 07/07/25 10:04 [email or web address] Spontaneous unlabored Yes 07/07/25 10:04 [email or web address] respirations Mental status Asleep 07/07/25 10:04 [email or web address] nausea No 07/07/25 10:04 [email or web address] Vomiting No 07/07/25 10:04 [email or web address] Anesthesia Postop Eval I: Fluid Summary Crystalloid volume administer 500 07/07/25 10:04 [email or web address] (ml) Colloids volume administered ( ml) Blood Product volume administered (ml) Total IV fluid infused 500 07/07/25 10:04 [email or web address] Anesthesia Postop Eval I: Summary Notes Anesthesia Complication No 07/07/25 10:04 [email or web address] Anesthesia Complication Comment: Post-operative progress note Anesthesia: Postop Eval II Evaluation Mental status: Awake and Calm Pain Level: 1 nausea: No Vomiting: No Complications Anesthesia Complication: No
== END 2025-07-07 10:43 | disposition home or self-care (01) ==
LOC: EN 08:19 → AC 08:20
PROVIDERS: PCP Family Medicine; Referring Provider Family Medicine; Visit Provider Internal Medicine Gastroenterology
PROC: 0DJD8ZZ Inspection of Lower Intestinal Tract, Via Natural or Artificial Opening Endoscopic (ICD-10-PCS; CPT 45378; principal; 2025-07-07 09:25)
DX: D12.3 Benign neoplasm of transverse colon (principal); J44.9 Chronic obstructive pulmonary disease, unspecified; K57.30 Diverticulosis of large intestine without perforation or abscess without bleeding; Z87.891 Personal history of nicotine dependence; K21.9 Gastro-esophageal reflux disease without esophagitis; Z79.899 Other long term (current) drug therapy; K59.01 Slow transit constipation; K75.81 Nonalcoholic steatohepatitis (NASH); K64.8 Other hemorrhoids; D12.0 Benign neoplasm of cecum; D12.2 Benign neoplasm of ascending colon; D12.5 Benign neoplasm of sigmoid colon
CPT/HCPCS: 45385; 45380; 88305; J2405